=== PATIENT | male | born 1980 | race Two or more races ===

== ENCOUNTER 2022-12-06 17:29 | Emergency (ER) | payer OTHER, SELFPAY ==
[2022-12-06 17:33] VITALS: BP 141/98; PULSE 73; RESP 16; TEMP 37.1; O2SAT 97; BMI 30.8
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
== END 2022-12-06 18:38 | disposition home or self-care (01) ==
PROVIDERS: Emergency Provider Student in an Organized Health Care Education/Training Program
DX: S39.012A Strain of muscle, fascia and tendon of lower back, initial encounter (principal); S46.812A Strain of other muscles, fascia and tendons at shoulder and upper arm level, left arm, initial encounter; S46.811A Strain of other muscles, fascia and tendons at shoulder and upper arm level, right arm, initial encounter; V43.52XA Car driver injured in collision with other type car in traffic accident, initial encounter; Y93.89 Activity, other specified; Y92.414 Local residential or business street as the place of occurrence of the external cause; Y99.0 Civilian activity done for income or pay
CPT/HCPCS: 99283

== ENCOUNTER 2023-02-04 19:36 | Emergency (ER) | payer BC, SELFPAY ==
--- NOTE | ~2023-02-04 | XR_ITS ---
EXAMINATION: XR CHEST CLINICAL INFORMATION: Chest pain. COMPARISON: None available. TECHNIQUE: 2 views of the chest were obtained. FINDINGS: The cardiomediastinal silhouette is normal. There is no focal lung consolidation or pleural effusion. The bony structures and soft tissues are unremarkable. XR/XR chest 2V IMPRESSION: No active cardiopulmonary disease.
[2023-02-04 20:38] VITALS: BP 138/91; PULSE 62; RESP 18; TEMP 36.3; O2SAT 95; BMI 30.8
--- NOTE | 2023-02-04 20:46 | ECG_ITS ---
Test Reason : HTN Blood Pressure : / mmHG Vent. Rate : 066 BPM Atrial Rate : 066 BPM P-R Int : 154 ms QRS Dur : 150 ms QT Int : 420 ms P-R-T Axes : -02 -38 003 degrees QTc Int : 440 ms Normal sinus rhythm Left anterior fascicular block Right bundle branch block Abnormal ECG No previous ECGs available Referred By: Tamra Toney Electronically Signed By:TERRANCE MAZA MD
[2023-02-04 21:01] LABS: MANUAL DIFF FLAG NO
[2023-02-04 21:13] LABS: Basophils Percent Auto 0.5 % (0-2); Eosinophils Absolute Auto 0.2 X10*3/uL (0.0-0.4); Eosinophils Percent Auto 3.1 % (0-4); Hematocrit 43.3 % (42.0-52.0); Hemoglobin 14.4 g/dl (14.0-18.0); Imm Gran Abs Auto 0.02 X10*3/uL (0.00-0.03); Imm Gran Pct Auto 0.3 % (0.0-0.4); Lymphocytes Absolute Auto 2.3 X10*3/uL (1.2-4.9); Lymphocytes Percent Auto 35.6 % (20-40); Mean Corpuscular HGB Conc 33.3 g/dl (31.0-36.0); Mean Corpuscular Hemoglobin 29.6 pg (27.0-33.0); Mean Corpuscular Volume 88.9 fL (80.0-98.0); Mean Platelet Volume 11.2 fL (9.4-12.4); Monocytes Absolute Auto 0.5 X10*3/uL (0.1-1.2); Monocytes Percent Auto 8.2 % (2-11); Neutrophils Absolute Auto 3.4 x10*3/uL (2.0-8.3); Neutrophils Percent Auto 52.3 % (45-73); Platelet Count 226 X10*3/uL (160-400); Red Blood Count 4.87 X10*6/uL (4.60-5.80); White Blood Count 6.5 X10*3/uL (4.8-10.8)
[2023-02-04 21:18] LABS: Alanine Aminotransferase 37 U/L (0-40); Albumin Level 4.3 g/dL (3.5-5.0); Alkaline Phosphatase 69 U/L (39-117); Anion Gap 14 (12-20); Aspartate Amino Transferase 27 U/L (5-37); Bilirubin Direct 0.1 mg/dL (0.0-0.5); Bilirubin Total 0.4 mg/dL (0.0-1.0); Blood Urea Nitrogen 14 mg/dL (9-16); Calcium 9.4 mg/dL (8.4-10.2); Carbon Dioxide 24 mmol/L (22-29); Chloride 108 mmol/L (96-108); Creatinine Clr Calc Pharmacy 107.4; Estimated Glomerular Filt Rate > 60; Glucose Random 104 mg/dL (60-115); Potassium 3.7 mmol/L (3.3-5.1); Sodium 142 mmol/L (135-145)
[2023-02-04 21:25] LABS: Troponin-I High Sensitivity < 2.7 ng/L (<3.5-35.0)
[2023-02-04 22:34] VITALS: BP 136/87; PULSE 62; RESP 17; TEMP 36.4; O2SAT 95
--- NOTE | 2023-02-04 22:40 | MHC.EDTECH ---
Patient changed over into miguel
--- NOTE | 2023-02-04 22:43 | ED_ITS ---
HPI - Chest Pain General Chief Complaint: Chest Pain Stated Complaint: hypertension Time Seen by Provider: 02/04/23 22:35 Source: patient Mode of arrival: ambulatory Limitations: no limitations History of Present Illness HPI narrative: Patient 42 years old with no history of hypertension does have a family history of hypertension was at a chiropractor office for back spasm check the blood pressure was 138/102 patient denied any other complaints on arrival patient's blood pressure was 138/91 repeat blood pressure now is 127/82 Related Data Previous Rx's Medication Instructions Recorded acetaminophen 500 mg tablet 1,000 mg (2 x 500 mg) PO QID PRN 12/06/22 pain #30 tabs ibuprofen 600 mg tablet 600 mg PO Q6H PRN pain #20 tabs 12/06/22 Allergies Allergy/AdvReac Type Severity Reaction Status Date / Time No Known Allergies Allergy Verified 12/06/22 17:36 Review of Systems 2 Review of Systems: Yes all other systems are reviewed and are negative PMFSH Social History Social History Advance Directives: No Advance Directives Information Provided: No Physical Exam 2 Vital Signs: Vital Signs: Last Vital Signs Temp 97.6 F 02/04/23 22:34 Pulse 62 02/04/23 22:34 Resp 17 02/04/23 22:34 BP 136/87 02/04/23 22:34 Pulse Ox 95 02/04/23 22:34 O2 Del Method Room Air 02/04/23 22:34 BMI result Body Mass Index 30.8 Appearance: Alert. Oriented X3. No acute distress. Eyes: No pallor or icterus ENT: Pharynx normal. Oral Mucosa moist Neck: Normal inspection. Neck supple. CVS: Normal heart rate and rhythm. Pulses normal. Respiratory: No respiratory distress. Equal air entry bilateral, no wheezing/rales/rhonchi Abdomen: Soft and nontender. Bowel sounds are present, no mass palpable, no CVA tenderness Skin: Skin warm and dry. Normal skin color. Normal skin turgor. Extremities: No lower extremity edema. No calf tenderness Neuro: Oriented X 3. No motor deficit. No sensory deficit.No cerebellar signs , cranial nerves II-XII intact Medical Decision Making Medical Decision Making MDM Narrative: Patient recheck blood pressure was normal labs are stable advised to have healthy diet Differential Diagnosis Differential Diagnoses: The differential diagnosis associated with the presentation includes Essential hypertension/white coat hypertension Lab Data MDM Lab Attestation statement: I reviewed the patient's lab results. 02/04/23 20:56 02/04/23 20:56 Labs: Lab Results 02/04/23 Range/Units 20:56 WBC 6.5 (4.8-10.8) X10*3/uL RBC 4.87 (4.60-5.80) X10*6/uL Hgb 14.4 (14.0-18.0) g/dl Hct 43.3 (42.0-52.0) % MCV 88.9 (80.0-98.0) fL MCH 29.6 (27.0-33.0) pg MCHC 33.3 (31.0-36.0) g/dl RDW 13.0 (11.0-16.0) % Plt Count 226 (160-400) X10*3/uL MPV 11.2 (9.4-12.4) fL Immature Gran % (Auto) 0.3 (0.0-0.4) % Neut % (Auto) 52.3 (45-73) % Lymph % (Auto) 35.6 (20-40) % Benzie % (Auto) 8.2 (2-11) % Eos % (Auto) 3.1 (0-4) % Baso % (Auto) 0.5 (0-2) % Lymph # (Auto) 2.3 (1.2-4.9) X10*3/uL [place] # (Auto) 0.5 (0.1-1.2) X10*3/uL Eos # (Auto) 0.2 (0.0-0.4) X10*3/uL Baso # (Auto) 0.0 (0.0-0.2) X10*3/uL Abs Immat Gran (auto) 0.02 (0.00-0.03) X10*3/uL Absolute Neuts (auto) 3.4 (2.0-8.3) x10*3/uL Absolute Nucleated RBC 0.000 (0.0-0.012) X10*3/uL Nucleated RBC % (auto) 0.0 (0.0-0.2) /100WBC Sodium 142 (135-145) mmol/L Potassium 3.7 (3.3-5.1) mmol/L Chloride 108 (96-108) mmol/L Carbon Dioxide 24 (22-29) mmol/L Anion Gap 14 (12-20) BUN 14 (9-16) mg/dL Creatinine 1.07 (0.5-1.4) mg/dL Estim Creat Clear Calc 107.4 Estimated GFR > 60 Random Glucose 104 (60-115) mg/dL Calcium 9.4 (8.4-10.2) mg/dL Total Bilirubin 0.4 (0.0-1.0) mg/dL Direct Bilirubin 0.1 (0.0-0.5) mg/dL AST 27 (5-37) U/L ALT 37 (0-40) U/L Alkaline Phosphatase 69 (39-117) U/L Troponin I High Sens < 2.7 (<3.5-35.0) ng/L Total Protein 7.0 (6.5-8.0) g/dL Albumin 4.3 (3.5-5.0) g/dL Discharge Plan Discharge Clinical Impression: Elevated blood pressure reading Patient Disposition: Home, Self-Care Instructions: How to Take a Blood Pressure (ED) Additional Instructions: your blood pressure was transiently high, at this time it is normal Decreased salt intake Check blood pressure daily, normal blood pressure should be less than 135/85 Prescriptions: No Action acetaminophen 500 mg tablet 1,000 mg PO QID PRN (Reason: pain) Qty: 30 0RF ibuprofen 600 mg tablet 600 mg PO Q6H PRN (Reason: pain) Qty: 20 0RF
== END 2023-02-04 23:17 | disposition home or self-care (01) ==
PROVIDERS: Physician Assistant Medical; Emergency Provider Internal Medicine
DX: R07.89 Other chest pain (principal); I10 Essential (primary) hypertension; Z79.899 Other long term (current) drug therapy
CPT/HCPCS: 36415; 71046; 80048; 80076; 84484; 85025; 93005; 99283

== ENCOUNTER 2025-03-26 04:31 | Emergency (ER) | payer BC, SELFPAY ==
--- NOTE | ~2025-03-26 | CT_ITS ---
EXAMINATION: CT ABDOMEN PELVIS WITH IV CONTRAST HISTORY: R Flank Pain; Sudden Onset; ? Renal Stone COMPARISON: There are no prior studies for available comparison. TECHNIQUE: CT scan of the abdomen and pelvis was performed following administration of 85 mL Omnipaque 350 using standard departmental protocol. Coronal and sagittal reformatted images were generated and reviewed. Oral contrast material was not administered at the request of the referring physician. This CT exam was performed with one or more of the following dose reduction techniques: automated exposure control, adjustment of the mA and/or kV according to patient size, use of iterative reconstruction technique. DLP: 701 mGy-cm FINDINGS: LOWER CHEST: The visualized lung bases are clear. There is no pleural effusion. CARDIOVASCULATURE: The heart is normal in size. There is no pericardial effusion. LIVER: The liver is normal in size and contour. No liver mass is identified. The hepatic and portal veins are patent. GALLBLADDER / BILE DUCTS: The gallbladder is unremarkable. There is no intra or extrahepatic biliary ductal dilatation. SPLEEN: The spleen is normal in size. No focal splenic lesion is identified. PANCREAS: The pancreas is unremarkable in appearance. ADRENAL GLANDS: Within normal limits. KIDNEYS/RETROPERITONEUM: No renal calculi are identified. There is a delayed nephrogram on the right. There is mild right hydronephrosis and perinephric soft tissue stranding. There is mild right hydroureter to the level of a 3 mm UVJ calculus. No renal masses are identified. LYMPH NODES: No abdominal or pelvic lymphadenopathy. VASCULATURE: The abdominal aorta is normal in caliber. MESENTERY/PERITONEUM: No free fluid. No masses. There is no free intraperitoneal gas. STOMACH: The stomach is unremarkable. SMALL BOWEL: The small bowel is normal in caliber. COLON: There are scattered diverticula of the sigmoid colon, without evidence of diverticulitis. APPENDIX: Normal. URINARY BLADDER/PELVIC ORGANS: The urinary bladder is collapsed, limiting evaluation. The prostate is normal in size. BONES / SOFT TISSUES: No suspicious bony or soft tissue abnormalities. CT/CT abdomen pelvis w IV con IMPRESSION: Mild right hydroureteronephrosis to the level of a 3 mm UVJ calculus. Electronically signed by: Jeancarlos Mistry MD 03/26/2025 08:06 AM [facility]UNA[facility]
[2025-03-26 04:40] VITALS: BP 181/108; PULSE 60; RESP 20; O2SAT 100; BMI 32.3
[2025-03-26 04:49] VITALS: BP 181/108; PULSE 75; RESP 20; O2SAT 99
--- OUTSIDE RECORDS SUMMARY | 2025-03-26 04:51 | XMS_ITS ---
Author Name [facility] Organization Unknown Care Team Organization Name Specialty Phone Email Start Date End Da te [facility] 02/13/2022 4
--- OUTSIDE RECORDS SUMMARY | 2025-03-26 04:51 | XMS_ITS | Clinical Summary ---
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 90 tablet 1 5 Active fluticasone propionate (FLONASE) 50 mcg/actuation nasal spray Administer 2 sprays into each nostril 1 (one) time each day. 4 Active Active Problems Problem Noted Date Diagnosed Date Primary hypertension 10/15/2023 Prediabetes 10/15/2023 PEDRO PABLO (obstructive sleep apnea) 10/15/2023 Allergic rhinitis 06/14/2023 Immunizations Immunization Administration Dates Next Due Influenza Quadravalent, MDCK , 0.5ml, preservative free (Flucelvax) 6mo and older 02/07/2023 Tdap Tetanus diptheria acell ular pertussis (Boostrix; Adacel) 7yo and older 05/07/2018 Surgical History Surgery Date Site/Laterality Comments OTHER SURGICAL HISTORY PROCEDURE: DENIES PREVIOUS SURGERY Medical History Medical History Date Comments Allergic rhinitis DX:Allergic rh initis Family History Medical History Relation Name Comments Asthma Brother Hypertension Father No Known Problems Sister Relation Name Status Comments Brother Daughter Alive Father Alive Mother Alive Sister Alive Son Alive Social History Tobacco Use Types Packs/Day Years Used Date Smoking Tobacco: Former Smokeless Tobacco: Never Tobacco Cessation:Counseling Given: Not Answered Alcohol Use Standard Drinks/Week Comments Yes 0 (1 standard drink = 0.6 oz pur e alcohol) Sex and Gender Information Value Date Recorded Sex Assigned at Not on file Legal Sex Male 5:38 AM EST Gender Identity Not on file Sexual Orientation Not on file Last Filed Vital Signs Vital Sign Reading Time Taken Comments Blood Pressure 138/80 10/20/2024 8:43 AM EDT Pulse 74 10/20/2024 8:43 AM EDT Temperature 36.6 C (97.9 F) 05/12/2024 1:17 PM EST Respiratory Rate - - Oxygen Saturation 96% 10/20/2024 8:43 AM EDT Inhaled Oxygen Concentration - - Weight 101 kg (223 lb) 05/12/2024 1:17 PM EST Height 177.8 cm (5' 10 ) 05/12/2024 1:17 PM EST Body Mass Index 32 05/12/2024 1:17 PM EST Plan of Treatment Upcoming Encounters Date Type Department Care Team (Late st Contact Info) Description 04/20/2025 3:45 PM EST Office Visit Pulmonology - [place] [address] [facility] [address] [place] [id number] Shelby Garvey MD [address] [place] [phone] 04/22/2025 8:30 AM EST Office Visit Adult Medicine [address] [phone] Dell Bertrand MD [address] [place] [address] Health Maintenance Due Date Last Done Comments Hepatitis B Vaccines (1 of 3 - 19+ 3-dose series) 2001 HPV Vaccines (1 - 3-dose SCD M series) 2009 HIV Screening 05/08/2023 Hepatitis C Screening 05/08/2023 Social Influencers of Health Screening 05/08/2023 Hypertension/CHF/CAD Annual BMP Blood Test 05/10/2023 Depression Screening 04/08/2024 COVID-19 Vaccine (4 - 2024-2 6 season) 2024 04/02/2021, 09/01/2020, 08/04/2020 Influenza Vaccine (#1) 2024 02/07/2023 Cholesterol Screening (Lipid Panel) 02/19/2028 02/18/2023 DTaP,Tdap,and Td Vaccines (2 - Td or Tdap) 05/07/2028 05/07/2018 RSV Immunization Adult Patients (1 - 1-dose 75+ series) 2057 HIB Vaccines Aged Out No longer eligi ble based on patient's age to complete this topic Hepatitis A Vaccines Aged Out No long er eligible based on patient's age to complete this topic IPV Vaccines Aged Out No longer eligi ble based on patient's age to complete this topic MMR Vaccines Aged Out No longer eligi ble based on patient's age to complete this topic Meningococcal ACWY Vaccine Aged Out N o longer eligible based on patient's age to complete this topic Meningococcal B Vaccine Aged Out No l onger eligible based on patient's age to complete this topic Pneumococcal Vaccine: Pediatrics (0 to 5 Years) and At-Risk Patients (6 to 49 Years) Aged Out No longer eligible b ased on patient's age to complete this topic RSV Immunization Patients Under 20 months Aged Out No longer eligible b ased on patient's age to complete this topic Varicella Vaccines Aged Out No longer eligible based on patient's age to complete this topic Procedures Procedure Name Priority Date/Time Associated Diagnosis Comments LIPID PANEL Routine 02/18/2023 from Last 3 Months or Most Recently Relevant to Health Maintenance Results * Lipid panel (02/18/2023) LDL/HDL Ratio 4 Triglycerides 185 mg/dL Cholesterol 178 mg/dL HDL 48 mg/dL LDL Cholesterol 93 mg/dL Blood Venous blood specimen / Unknown us Historical Provider LAB BLOOD ORDERABLES Maki l Result from Last 3 Months or Most Recently Relevant to Health Maintenance Insurance [facility] ([facility]) Care Teams Carton Filling Machine Operator Relationship Specialty Start Date End Date Dell Bertrand MD [address] [place] [id number] PCP - General 02/06/23
[2025-03-26 05:40] LABS: MANUAL DIFF FLAG NO
[2025-03-26 05:41] LABS: Hematocrit 46.2 % (42.0-52.0); Hemoglobin 15.4 g/dl (14.0-18.0); Imm Gran Abs Auto 0.09 X10*3/uL (0.00-0.03); Imm Gran Pct Auto 0.9 % (0.0-0.4); Lymphocytes Absolute Auto 3.9 X10*3/uL (1.2-4.9); Mean Corpuscular HGB Conc 33.3 g/dl (31.0-36.0); Mean Corpuscular Hemoglobin 29.2 pg (27.0-33.0); Mean Corpuscular Volume 87.5 fL (80.0-98.0); NRBC Abs Auto 0.000 X10*3/uL (0.0-0.012); NRBC Pct Auto 0.0 /100WBC (0.0-0.2); Platelet Count 276 X10*3/uL (160-400); Red Blood Count 5.28 X10*6/uL (4.60-5.80); White Blood Count 9.9 X10*3/uL (4.8-10.8)
--- NOTE | 2025-03-26 05:43 | ED_ITS ---
HPI - Back Pain/Injury General Chief Complaint: Back Pain/Injury Stated Complaint: Low R Side Pain Time Seen by Provider: 03/26/25 05:41 Source: patient and family Mode of arrival: ambulatory Limitations: no limitations History of Present Illness ED Provider: Jonathan GARVIN HPI Narrative: The patient is a 44-year-old male presenting to the ED for evaluation of sudden onset right flank pain which woke him from sleep this morning. The patient reports associated nausea without vomiting, and diaphoresis. Patient reports pain is sharp, stabbing, on the posterior right flank and patient states he is unable to find a comfortable position, reports an associated urge to move his bowels. Patient denies any recent sick contacts or trauma, denies associated hematuria, fever, diarrhea, vomiting, or history of previous kidney stones. Related Data Previous Rx's ?Medication ?Instructions ?Recorded acetaminophen 500 mg tablet 1,000 mg (2 x 500 mg) PO Q ID PRN 12/06/22 pain #30 tabs ibuprofen 600 mg tablet 600 mg PO Q6H PRN pain #20 t abs 12/06/22 ondansetron 4 mg disintegrating 4 mg PO Q8H PRN nausea and 03/26/25 tablet vomiting #4 tabs oxycodone 5 mg tablet 5 mg PO Q6H PRN pain #10 tab s 03/26/25 tamsulosin 0.4 mg capsule 0.4 mg PO BEDTIME 3 days #3 caps 03/26/25 Allergies Allergy/AdvReac Type Severity Reaction Status Date / Time No Known Allergies Allergy Verified 03/26/25 04:42 Review of Systems 2 Review of Systems: Yes all other systems are reviewed and are negative [facility] Social History Social History Smoked in Last 30 Days: No Use of substances other than those prescribed or required for medical reasons: No Advance Directives: No Advance Directives Information Provided: No Physical Exam 2 Vital Signs: Vital Signs: Last Vital Signs Temp 97.6 F 03/26/25 06:08 Pulse 58 03/26/25 06:08 Resp 20 03/26/25 06:54 BP 146/90 H 03/26/25 06:08 Pulse Ox 98 03/26/25 06:08 O2 Del Method Room Air 03/26/25 06:08 BMI result Body Mass Index 32.3 CONSTITUTIONAL: The patient appears in obvious discomfort, but otherwise non- toxic, well nourished and in no acute distress. Vital signs as documented. HEAD: Atraumatic, normocephalic. EYES: EOMs grossly intact, pupils equal, conjunctiva clear, no exudate. ENT: Nares patent, no discharge. Airway patent, no audible stridor, visible mucosa is pink and moist without noted lesions. NECK: Trachea is midline, no obvious masses or gross abnormalities. CHEST: Symmetric movement, normal appearance. LUNGS: LS present and CTAB, no w/r/r. Non-labored work of breathing. CARDIAC: Regular Rhythm, S1/S2 appreciated, no murmurs, rubs or gallops. ABDOMEN: Abdomen soft x4 quadrants, mild tenderness of the right upper and lower quadrant, negative rebound, no palpable masses or organomegaly. Negative CVAT bilaterally. : Deferred. EXTREMITIES: Normal tone, moves all extremities spontaneously without reported pain. No obvious acute injury or deformity noted. NEURO: Alert and oriented x3, CN II-XII appear grossly intact. Cerebellar Functioning grossly intact. No obvious sensory or motor deficits. Speech clear and appropriate. PSYCH: normal affect, appropriate eye contact, fluid speech, with appropriate response to questioning. No reported suicidality or homicidality. SKIN: Warm, diaphoretic, color appropriate, normal turgor. No rashes noted. Course Reevaluation(s) Reevaluation #1: 6:42 AM 03/26/2025 (Dr. Jaime Noel): I, Dr. Noel have take over the care of this patient, I reviewed pertinent blood work and imaging, re-evaluated the patient when appropriate. Re-evaluating pending CT for new right flank pain, suspicious for kidney stones did respond initially to ketorolac at the time of evaluation still having some pain, back or add additional medications Pending urinalysis as well Reevaluation #2: IMPRESSION: Mild right hydroureteronephrosis to the level of a 3 mm UVJ calculus. 8:13 AM 03/26/2025 (Dr. Jaime Noel): Discussed findings with the patient, see my discharge instructions Medications Administered Discontinued Medications Generic Name Dose Route Start Last Admin Trade Name Freq PRN Reason Stop Dose Admin Hydromorphone HCl 0.5 mg 03/26/25 07:41 03/26/25 08:03 Hydromorphone Hcl 0.5 Mg/0.5 Ml Syringe IVPUSH 03/26/25 07:42 0.5 mg ONCE ONE Administration Protocol Sodium Chloride 1,000 mls @ 999 mls/hr 03/26/25 05:45 03/26/25 07:34 Ns IV 03/26/25 06:45 Infused .Q1H1M CATRACHO Infusion Iohexol 100 ml 03/26/25 07:36 03/26/25 07:37 Iohexol 350 Mg/Ml 100 Ml Infus..Btl IV 03/26/25 07:37 85 ml ONCE ONE Administration Ketorolac Tromethamine 15 mg 03/26/25 05:43 03/26/25 05:47 Ketorolac Tromethamine 15 Mg/Ml Vial IVPUSH 03/26/25 05:44 15 mg ONCE ONE Administration Ketorolac Tromethamine 15 mg 03/26/25 06:41 03/26/25 06:54 Ketorolac Tromethamine 15 Mg/Ml Vial IVPUSH 03/26/25 06:42 15 mg ONCE ONE Administration Morphine Sulfate 4 mg 03/26/25 06:41 03/26/25 06:54 Morphine Sulfate 4 Mg/Ml Cartridge IVPUSH 03/26/25 06:42 4 mg ONCE ONE Administration Protocol Ondansetron HCl 4 mg 03/26/25 05:43 03/26/25 05:49 Ondansetron Hcl 4 Mg/2 Ml Vial IVPUSH 03/26/25 05:44 4 mg ONCE ONE Administration Medical Decision Making Medical Decision Making MDM Narrative: 5:43 AM 03/26/2025 (Simon GARVIN): The patient is a 44-year-old male presenting to the ED for evaluation of sudden onset right flank pain which woke him from sleep this morning. The patient reports associated nausea without vomiting, and diaphoresis. Patient reports pain is sharp, stabbing, on the posterior right flank and patient states he is unable to find a comfortable position, reports an associated urge to move his bowels. Patient denies any recent sick contacts or trauma, denies associated hematuria, fever, diarrhea, vomiting, or history of previous kidney stones. On exam patient is in obvious discomfort, with moderate diaphoresis, and is pacing around the exam room unable to find a comfortable position, holding his right flank. The patient's abdominal exam partially reproduces the pain, no rebound tenderness. Negative CVAT bilaterally. The patient's presentation is concerning for kidney stone, patient will be treated with Toradol, Zofran, IV fluid hydration, and we will obtain CT abdomen and pelvis to evaluate for stone versus other acute intra-abdominal pathology. Admission/Observation Consideration of admission/observation: Escalation of care including admission/observation considered Lab Data MDM Lab Attestation statement: I reviewed the patient's lab results. 03/26/25 05:31 03/26/25 05:30 Labs: Lab Results 03/26/25 03/26/25 03/26/25 Range/Units 05:30 05:31 06:57 WBC 9.9 (4.8-10.8) X10*3/uL RBC 5.28 (4.60-5.80) X10*6/uL Hgb 15.4 (14.0-18.0) g/dl Hct 46.2 (42.0-52.0) % MCV 87.5 (80.0-98.0) fL MCH 29.2 (27.0-33.0) pg MCHC 33.3 (31.0-36.0) g/dl RDW 13.0 (11.0-16.0) % Plt Count 276 (160-400) X10*3/uL MPV 10.7 (9.4-12.4) fL Immature Gran % (Auto) 0.9 H (0.0-0.4) % Neut % (Auto) 47.5 (45-73) % Lymph % (Auto) 39.2 (20-40) % [place] % (Auto) 8.0 (2-11) % Eos % (Auto) 3.7 (0-4) % Baso % (Auto) 0.7 (0-2) % Lymph # (Auto) 3.9 (1.2-4.9) X10*3/uL [place] # (Auto) 0.8 (0.1-1.2) X10*3/uL Eos # (Auto) 0.4 (0.0-0.4) X10*3/uL Baso # (Auto) 0.1 (0.0-0.2) X10*3/uL Abs Immat Gran (auto) 0.09 H (0.00-0.03) X10*3/uL Absolute Neuts (auto) 4.7 (2.0-8.3) x10*3/uL Absolute Nucleated RBC 0.000 (0.0-0.012) X10*3/uL Nucleated RBC % (auto) 0.0 (0.0-0.2) /100WBC Sodium 140 (135-145) mmol/L Potassium 3.5 (3.3-5.1) mmol/L Chloride 107 (96-108) mmol/L Carbon Dioxide 22 (22-29) mmol/L Anion Gap 15 (12-20) BUN 16 (9-16) mg/dL Creatinine 1.25 (0.5-1.4) mg/dL Estim Creat Clear Calc 92.1 Estimated GFR > 60 Random Glucose 147 H (60-115) mg/dL Calcium 9.4 (8.4-10.2) mg/dL Total Bilirubin 0.6 (0.0-1.0) mg/dL AST 34 (5-37) U/L ALT 58 H (0-40) U/L Alkaline Phosphatase 76 (39-117) U/L Total Protein 7.2 (6.5-8.0) g/dL Albumin 4.6 (3.5-5.0) g/dL Lipase 32 (8-78) U/L Urine Color DK YELLOW Urine Appearance Clear Urine pH 6.0 (5.0-9.0) Ur Specific [place] >= 1.030 H (1.005-1.025) Urine Protein Negative (Neg-Trace) mg/dL Urine Glucose (UA) Negative (Negative) mg/dL Urine Ketones Negative (Negative) mg/dL Urine Blood Trace (Negative) Urine Nitrite Negative (Negative) Ur Leukocyte Esterase Negative (Negative) Urine RBC 0-2 (0-2) /HPF Urine WBC 0-5 (0-5) /HPF Ur Squamous Epith Cells 0-2 (0-2) /HPF Urine Bacteria None Seen (None Seen) Hyaline Casts 0-2 (0-2) /LPF External Record Review External record reviewed: Outpatient record and Prior outpatient labs Prescription Management I considered prescription management with: Pain Medication Discharge Plan Discharge Clinical Impression: Renal colic Patient Disposition: Home, Self-Care Instructions: Renal Colic (ED) Additional Instructions: Your pass on a 3 mm kidney stone it is almost through into the bladder once he passes it you want have any pain, should you have any nausea or vomiting unable to take her oral medications, spiking fevers inability to urinate come back to the ER which is unlikely in the meantime use ibuprofen 400 mg every 6 hours around the clock, Tylenol 975 mg every 6 hours for additional pain control, providing with a few pills of oxycodone you can take Zofran as needed for nausea and vomiting and Flomax for the next few days, thereafter follow up with the PCP with return precautions as above Mild right hydroureteronephrosis to the level of a 3 mm UVJ calculus. Prescriptions: New tamsulosin 0.4 mg capsule 0.4 mg PO BEDTIME 3 Days Qty: 3 0RF ondansetron 4 mg tablet,disintegrating 4 mg PO Q8H PRN (Reason: nausea and vomiting) Qty: 4 0RF oxycodone 5 mg tablet 5 mg PO Q6H PRN (Reason: pain) Qty: 10 0RF Rx Instructions: Partial Fill upon patient request. No Action acetaminophen 500 mg tablet 1,000 mg PO QID PRN (Reason: pain) Qty: 30 0RF ibuprofen 600 mg tablet 600 mg PO Q6H PRN (Reason: pain) Qty: 20 0RF Print Language: [place]agu[place]
[2025-03-26 05:56] LABS: Alanine Aminotransferase 58 U/L (0-40); Albumin Level 4.6 g/dL (3.5-5.0); Alkaline Phosphatase 76 U/L (39-117); Anion Gap 15 (12-20); Aspartate Amino Transferase 34 U/L (5-37); Blood Urea Nitrogen 16 mg/dL (9-16); Calcium 9.4 mg/dL (8.4-10.2); Carbon Dioxide 22 mmol/L (22-29); Chloride 107 mmol/L (96-108); Creatinine Clr Calc Pharmacy 92.1; Estimated Glomerular Filt Rate > 60; Lipase 32 U/L (8-78); Potassium 3.5 mmol/L (3.3-5.1); Sodium 140 mmol/L (135-145); Total Protein 7.2 g/dL (6.5-8.0)
[2025-03-26 06:08] VITALS: BP 146/90; PULSE 58; RESP 18; TEMP 36.4; O2SAT 98
[2025-03-26 06:54] VITALS: RESP 20
[2025-03-26 07:10] LABS: Appearance Urine Clear; Glucose Urine UA Negative (Negative); PH 6.0 (5.0-9.0); Specific Gravity - Urine >= 1.030 (1.005-1.025); UMIC TRIGGER UACC YES
[2025-03-26] MEDS: iohexoL 350 MG/ML 100 ML INFUS..BTL IV (07:37)
[2025-03-26] MEDS: oxyCODONE HCl Immed Release 5 MG TABLET 10 MG PO (09:00)
== END 2025-03-26 09:01 | disposition home or self-care (01) ==
PROVIDERS: Emergency Medicine; Emergency Provider Emergency Medicine
DX: N23 Unspecified renal colic (principal)
CPT/HCPCS: 36415; 74177; 80053; 81001; 83690; 85025; 96361; 96374; 96375; 96376; 99285; J1171; J1885; J2270; J2405; Q9967

== ENCOUNTER → 2025-03-26 05:43 | Outpatient (BNV) | payer BC, SELFPAY | PROVIDERS: Emergency Provider Emergency Medicine; Visit Provider Radiology Diagnostic Radiology | DX: N13.2 Hydronephrosis with renal and ureteral calculous obstruction (principal) | CPT/HCPCS: 74177 ==